=== PATIENT | male | born 1965 | race Asian ===

== ENCOUNTER 2020-06-26 06:17 | Emergency (ER) | payer OTHER ==
[~2020-06-26] VITALS: Ht 172.7 cm; Wt 72.7 kg
[2020-06-26] MEDS ORDERED: LEVE250T PO (06:33)
[2020-06-26] MEDS ORDERED: PHEN50 PO (06:36)
[2020-06-26] MEDS: LevETIRAcetam 750 MG in DEXTROSE 5%-WATER 100 ML IV ONE (06:56)
[2020-06-26 08:30] LABS: CALCIUM, TOTAL 8.4 mg/dL (8.8-10.5); CREATININE 1.33 mg/dL (0.60-1.30); POTASSIUM 3.5 mmol/L (3.5-5.1)
[2020-06-26 10:00] VITALS: BP 126/80
== END 2020-06-26 10:32 | disposition home or self-care (01) ==
LOC: EMS 06:19
DX: G40.909 Epilepsy, unspecified, not intractable, without status epilepticus (principal); E78.00 Pure hypercholesterolemia, unspecified; I10 Essential (primary) hypertension; F17.200 Nicotine dependence, unspecified, uncomplicated
CPT/HCPCS: 36415; 80048; 96374; 99285; J0712; J7060